=== PATIENT | male | born 1975 | race American Indian/Alaskan Native ===

== ENCOUNTER 2018-10-08 16:53 | Emergency (ER) | payer OTHER ==
[2018-10-08 18:01] VITALS: BP 155/100
--- NOTE | 2018-10-08 18:01 | Emergency Department Report ---
Blank Doc - Documentation Documentation: This is a 43-year-old male that presents with a foreign body to left finger 4th digit. Stated has some glass. This initial assessment/diagnostic orders/clinical plan/treatment(s) is/are subject to change based on patient's health status, clinical progression and re-assessment by fellow clinical providers in the ED. Further treatment and workup at subsequent clinical providers discretion. Patient/guardians urged not to elope from the ED as their condition may be serious if not clinically assessed and managed. Initial orders include: 1- Patient sent to [facility] for further evaluation and treatment 2- xray
--- NOTE | 2018-10-08 20:15 | XRay Report ---
PROCEDURE: XR FINGER(S) 2+V LT TECHNIQUE: Frontal view left hand and oblique and lateral views left fourth finger HISTORY: hand patient picked up a napkin with glass. COMPARISONS: None FINDINGS: There is no evidence of fracture or subluxation. The joint spaces are maintained. The soft tissues are notable for the appearance of a tiny, approximately 1.7 mm focus of linear incre ased density projected in the region of the radial aspect tuft of the fourth finger. This may represe nt a tiny piece of glass. IMPRESSION: 1. Tiny focus of linear increased density radial aspect tuft of the fourth finger which may represent a tiny piece of glass. This document is electronically signed by Jessica Adan MD., October 08 2018 08:13:09 PM ET
--- NOTE | 2018-10-08 23:09 | Emergency Department Report ---
- General Chief complaint: Skin/Abscess/Foreign Body Stated complaint: FB IN FINGER/BS CHECK/MED REFILL Time Seen by Provider: 10/08/18 18:00 Source: patient Mode of arrival: Ambulatory Limitations: No Limitations - History of Present Illness Initial comments: Pt is a 43 yo male who presents to the ED with c/o a foreign body in the left 4th digit that occurred 10 days ago. 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 The patient denies any drainage, edema to the digit, fever, numbness, weakness, or any other sx. The patient states his last tetanus was 1 year ago. The patient states he has HTN and has not taken his medication in a couple of months secondary to lack of insurance. Pt also has not seen a PCP. - Related Data Previous Rx's Medication Instructions Recorded Last Taken Type amLODIPine [Norvasc] 5 mg PO DAILY 30 Days #30 tab 10/08/18 Unknown Rx hydroCHLOROthiazide [HCTZ] 25 mg PO QDAY 30 Days #30 tablet 10/08/18 Unknown Rx Allergies Allergy/AdvReac Type Severity Reaction Status Date / Time No Known Allergies Allergy Verified 05/27/18 12:13 Abscess Boil HPI - HPI Chief Complaint: Skin/Abscess/Foreign Body Stated Complaint: FB IN FINGER/BS CHECK/MED REFILL Time Seen by Provider: 10/08/18 18:00 Home Medications: Previous Rx's Medication Instructions Recorded Last Taken Type amLODIPine [Norvasc] 5 mg PO DAILY 30 Days #30 tab 10/08/18 Unknown Rx hydroCHLOROthiazide [HCTZ] 25 mg PO QDAY 30 Days #30 tablet 10/08/18 Unknown Rx Allergies/Adverse Reactions: Allergies Allergy/AdvReac Type Severity Reaction Status Date / Time No Known Allergies Allergy Verified 05/27/18 12:13 ED Review of Systems ROS: Stated complaint: FB IN FINGER/BS CHECK/MED REFILL Other details as noted in HPI Comment: All other systems reviewed and negative ED Past Medical Hx - Past Medical History Hx Hypertension: Yes - Surgical History Past Surgical History?: No - Social History Smoking Status: Current Every Day Smoker Substance Use Type: Marijuana - Medications Home Medications: Home Medications Medication Instructions Recorded Confirmed Last Taken Type amLODIPine [Norvasc] 5 mg PO DAILY 30 Days #30 tab 10/08/18 Unknown Rx hydroCHLOROthiazide [HCTZ] 25 mg PO QDAY 30 Days #30 tablet 10/08/18 Unknown Rx ED Physical Exam - General Limitations: No Limitations General appearance: alert, in no apparent distress - Head Head exam: Present: atraumatic, normocephalic - Eye Eye exam: Present: normal appearance - ENT ENT exam: Present: mucous membranes moist - Respiratory Respiratory exam: Absent: respiratory distress - Cardiovascular Cardiovascular Exam: Present: regular rate - Extremities Exam Extremities exam: Present: full ROM, normal capillary refill. Absent: tenderness, pedal edema, joint swelling, calf tenderness - Neurological Exam Neurological exam: Present: alert, oriented X3 - Psychiatric Psychiatric exam: Present: normal affect, normal mood - Skin Skin exam: Present: warm, dry, other (.5 cm area of callus to the volar aspect of the right ring finger, no signs of infection, no drainage, no induration, no fluctuance, no surrounding cellulitis) ED Course Vital Signs 10/08/18 10/08/18 17:57 23:34 Temperature 98.7 F Pulse Rate 91 H 80 Respiratory 16 17 Rate Blood Pressure 155/100 O2 Sat by Pulse 100 99 Oximetry ED Medical Decision Making - Radiology Data Radiology results: report reviewed cc: SUDHIR JOAQUIN NP Fluoro Time In Minutes: PROCEDURE: XR FINGER(S) 2+V LT TECHNIQUE: Frontal view left hand and oblique and lateral views left fourth finger HISTORY: hand patient picked up a napkin with glass. COMPARISONS: None FINDINGS: There is no evidence of fracture or subluxation. The joint spaces are maintained. The soft tissues are notable for the appearance of a tiny, approximately 1.7 mm focus of linear increased density projected in the region of the radial aspect tuft of the fourth finger. This may represent a tiny piece of glass. IMPRESSION: 1. Tiny focus of linear increased density radial aspect tuft of the fourth finger which may represent a tiny piece of glass. This document is electronically signed by Jessica Adan MD., October 08 2018 08:13:09 PM ET - Medical Decision Making Pt is a 43 yo male who presents to the ED with c/o a foreign body in the left 4th digit that occurred 10 days ago. 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 The patient denies any drainage, edema to the digit, fever, numbness, weakness, or any other sx. The patient states his last tetanus was 1 year ago. The patient states he has HTN and has not taken his medication in a couple of months secondary to lack of insurance. Pt also has not seen a PCP. XR of the hand shows Tiny focus of linear increased density radial aspect tuft of the fourth finger which may represent a tiny piece of glass. appears to be very distally and will most likely self resolve, no signs of infection or cellulitis. Will refill a 30 day supply of patients HTN medication but gave patient a list of resources in the community and advised that he would need to have future refills through a primary care doctor and not through the emergency department. Pt is asymptomatic. WIll have pt see a PCP in the next 2-3 days. Return to the emergency room for any new or worsening symptoms. Discussed case with Dr. Ma who agrees with treatment and plan. Critical care attestation.: If time is entered above; I have spent that time in minutes in the direct care of this critically ill patient, excluding procedure time. ED Disposition Clinical Impression: Foreign body finger HTN (hypertension) Qualifiers: Hypertension type: essential hypertension Qualified Code(s): I10 - Essential (primary) hypertension Disposition: DC-01 TO HOME OR SELFCARE Is pt being admited?: No Does the pt Need Aspirin: No Condition: Stable Instructions: Soft Tissue Foreign Body (ED), Hypertension (ED) Additional Instructions: Small foreign body is very small and very superficial will self resolve. Will refill a 30 day supply of your HTN medication but I gave you a list of resources in the community and you will need to have future refills through a primary care doctor and not through the emergency department. Please follow up with a primary care doctor in the next 2-3 days. Return to the emergency room for any new or worsening symptoms. Prescriptions: hydroCHLOROthiazide [HCTZ] 25 mg PO QDAY 30 Days #30 tablet amLODIPine [Norvasc] 5 mg PO DAILY 30 Days #30 tab Referrals: YULI SANDERS MD [Primary Care Provider] - 2-3 Days Time of Disposition: 23:22 Print Language: VENEZUELAN
== END 2018-10-08 23:30 | disposition home or self-care (01) ==
LOC: ED 16:53
DX: S60.451A Superficial foreign body of left index finger, initial encounter (principal); I10 Essential (primary) hypertension; F17.200 Nicotine dependence, unspecified, uncomplicated; F12.10 Cannabis abuse, uncomplicated; X58.XXXA Exposure to other specified factors, initial encounter; Y93.89 Activity, other specified; Y92.89 Other specified places as the place of occurrence of the external cause; Y99.8 Other external cause status
CPT/HCPCS: 82962

== ENCOUNTER 2019-09-25 19:25 | Emergency (ER) | payer SELFPAY ==
[2019-09-25 19:33] VITALS: BP 151/100
--- NOTE | 2019-09-25 19:56 | Emergency Department Report ---
Blank Doc - Documentation Documentation: 44-year-old male that presents with upper and lower extermitites weakness and aching pain with fever and chills. This initial assessment/diagnostic orders/clinical plan/treatment(s) is/are subject to change based on patient's health status, clinical progression and re-assessment by fellow clinical providers in the ED. Further treatment and workup at subsequent clinical providers discretion. Patient/guardians urged not to elope from the ED as their condition may be serious if not clinically assessed and managed. Initial orders include: 1- Patient sent to [facility] for further evaluation and treatment 2- labs 3- rap flu
[2019-09-25 20:31] LABS: Basophils % (Auto) 0.3 % (0.0-1.8); Eosinophils # (Auto) 0.3 K/mm3 (0.0-0.4); Eosinophils % (Auto) 3.6 % (0.0-4.3); Hematocrit 43.8 % (35.5-45.6); Hemoglobin 14.4 gm/dl (11.8-15.2); Lymphocytes # (Auto) 3.1 K/mm3 (1.2-5.4); Lymphocytes % (Auto) 41.8 % (13.4-35.0); Mean Corpuscular HGB Conc 33 % (32-34); Mean Corpuscular Volume 86 fl (84-94); Monocytes # (Auto) 0.5 K/mm3 (0.0-0.8); Monocytes % (Auto) 6.6 % (0.0-7.3); Platelet Count 291 K/mm3 (140-440); Red Blood Count 5.12 M/mm3 (3.65-5.03); Red Cell Distribution Width 14.5 % (13.2-15.2)
[2019-09-25 20:40] LABS: BUN/Creatinine Ratio 18; Blood Urea Nitrogen 16 mg/dL (9-20); Calcium 9.6 mg/dL (8.4-10.2); Hemolysis Index 17
[2019-09-25 22:55] LABS: Bilirubin,Urine NEG (Negative); Blood,Urine NEG (Negative); Color,Urine Yellow (Yellow); Mucus,Urine 1+ /HPF; Urobilinogen,Urine < 2.0 mg/dL (<2.0)
[2019-09-25] MEDS ORDERED: predniSONE 20 MG TAB PO ONE (23:52)
[2019-09-25] MEDS ORDERED: ACETAMINOPHEN 325 MG TAB PO ONE (23:52)
[2019-09-25] MEDS ORDERED: MAGIC MOUTHWASH 30ML PO ONE (23:52)
--- NOTE | 2019-09-26 00:33 | Emergency Department Report ---
ED ENT HPI - General Chief complaint: Extremity Problem,Nontraumatic Stated complaint: LEG,ARM,THROAT PAIN Time Seen by Provider: 09/25/19 19:56 Source: patient Mode of arrival: Ambulatory Limitations: No Limitations - History of Present Illness Initial comments: Patient is a 44-year-old male who presents to ED with his mother complaining of throat pain 4 days. Patient describes pain as throbbing in nature, 8 out of 10 intensity, nonradiating, localized to his throat. Admits pain with swallowing and eating. Patient admits no appetite due to throat pain. Patient states that for the past 3 days now he is muscle pain in bilateral arms and legs. Patient also states that pain is generalized muscle aches. Patient also states that pain is throbbing in nature. Patient denies working out extremely or denies any heavy lifting recently. Patient states he is done for prolonged time at his job otherwise no physical activities Patient denies nausea/chills/fever vomiting/abdominal pain/shortness of breath/chest pain/headache. MD complaint: sore throat - Related Data Previous Rx's Medication Instructions Recorded Last Taken Type amLODIPine 5 mg PO DAILY 30 Days #30 tab 10/08/18 Unknown Rx hydroCHLOROthiazide [HCTZ] 25 mg PO QDAY 30 Days #30 tablet 10/08/18 Unknown Rx Amoxicillin [Trimox CAP] 500 mg PO Q8H #21 capsule 09/26/19 Unknown Rx Ibuprofen [Motrin 800 MG tab] 800 mg PO Q8HR PRN #30 tablet 09/26/19 Unknown Rx Nystas/Diphen/Xyl Visc/Mylanta 15 ml MM Q6H PRN #120 ml 09/26/19 Unknown Rx [Magic Mouthwash] Allergies Allergy/AdvReac Type Severity Reaction Status Date / Time No Known Allergies Allergy Verified 05/27/18 12:13 ED Dental HPI - General Chief complaint: Extremity Problem,Nontraumatic Stated complaint: LEG,ARM,THROAT PAIN Time Seen by Provider: 09/25/19 19:56 Source: patient Mode of arrival: Ambulatory Limitations: No Limitations - Related Data Previous Rx's Medication Instructions Recorded Last Taken Type amLODIPine 5 mg PO DAILY 30 Days #30 tab 10/08/18 Unknown Rx hydroCHLOROthiazide [HCTZ] 25 mg PO QDAY 30 Days #30 tablet 10/08/18 Unknown Rx Amoxicillin [Trimox CAP] 500 mg PO Q8H #21 capsule 09/26/19 Unknown Rx Ibuprofen [Motrin 800 MG tab] 800 mg PO Q8HR PRN #30 tablet 09/26/19 Unknown Rx Nystas/Diphen/Xyl Visc/Mylanta 15 ml MM Q6H PRN #120 ml 09/26/19 Unknown Rx [Magic Mouthwash] Allergies Allergy/AdvReac Type Severity Reaction Status Date / Time No Known Allergies Allergy Verified 05/27/18 12:13 ED Review of Systems ROS: Stated complaint: LEG,ARM,THROAT PAIN Other details as noted in HPI Comment: All other systems reviewed and negative ED Past Medical Hx - Past Medical History Previous Medical History?: Yes Hx Hypertension: Yes - Surgical History Past Surgical History?: No - Social History Smoking Status: Never Smoker - Medications Home Medications: Home Medications Medication Instructions Recorded Confirmed Last Taken Type amLODIPine 5 mg PO DAILY 30 Days #30 tab 10/08/18 Unknown Rx hydroCHLOROthiazide [HCTZ] 25 mg PO QDAY 30 Days #30 tablet 10/08/18 Unknown Rx Amoxicillin [Trimox CAP] 500 mg PO Q8H #21 capsule 09/26/19 Unknown Rx Ibuprofen [Motrin 800 MG tab] 800 mg PO Q8HR PRN #30 tablet 09/26/19 Unknown Rx Nystas/Diphen/Xyl Visc/Mylanta 15 ml MM Q6H PRN #120 ml 09/26/19 Unknown Rx [Magic Mouthwash] ED Physical Exam - General Limitations: No Limitations General appearance: alert, in no apparent distress - Head Head exam: Present: atraumatic, normocephalic - Eye Eye exam: Present: normal appearance - ENT ENT exam: Present: mucous membranes moist - Neck Neck exam: Present: normal inspection - Respiratory Respiratory exam: Present: normal lung sounds bilaterally. Absent: respiratory distress - Cardiovascular Cardiovascular Exam: Present: regular rate, normal rhythm. Absent: systolic murmur, diastolic murmur, rubs, gallop - GI/Abdominal GI/Abdominal exam: Present: soft, normal bowel sounds - Rectal Rectal exam: Present: deferred - Extremities Exam Extremities exam: Present: normal inspection - Back Exam Back exam: Present: normal inspection - Neurological Exam Neurological exam: Present: alert, oriented X3 - Psychiatric Psychiatric exam: Present: normal affect, normal mood - Skin Skin exam: Present: warm, dry, intact, normal color. Absent: rash ED Course Vital Signs 09/25/19 09/25/19 19:30 20:07 Temperature 98.2 F 98.2 F Pulse Rate 91 H 95 H Respiratory 20 20 Rate Blood Pressure 151/100 151/100 O2 Sat by Pulse 97 97 Oximetry ED Medical Decision Making - Lab Data Result diagrams: 09/25/19 20:05 09/25/19 20:05 Laboratory Last Values WBC 7.3 K/mm3 (4.5-11.0) 09/25/19 20:05 RBC 5.12 M/mm3 (3.65-5.03) H 09/25/19 20:05 Hgb 14.4 gm/dl (11.8-15.2) 09/25/19 20:05 Hct 43.8 % (35.5-45.6) 09/25/19 20:05 MCV 86 fl (84-94) 09/25/19 20:05 MCH 28 pg (28-32) 09/25/19 20:05 MCHC 33 % (32-34) 09/25/19 20:05 RDW 14.5 % (13.2-15.2) 09/25/19 20:05 Plt Count 291 K/mm3 (140-440) 09/25/19 20:05 Lymph % (Auto) 41.8 % (13.4-35.0) H 09/25/19 20:05 [place] % (Auto) 6.6 % (0.0-7.3) 09/25/19 20:05 Eos % (Auto) 3.6 % (0.0-4.3) 09/25/19 20:05 Baso % (Auto) 0.3 % (0.0-1.8) 09/25/19 20:05 Lymph # 3.1 K/mm3 (1.2-5.4) 09/25/19 20:05 [place] # 0.5 K/mm3 (0.0-0.8) 09/25/19 20:05 Eos # 0.3 K/mm3 (0.0-0.4) 09/25/19 20:05 Baso # 0.0 K/mm3 (0.0-0.1) 09/25/19 20:05 Seg Neutrophils % 47.7 % (40.0-70.0) 09/25/19 20:05 Seg Neutrophils # 3.5 K/mm3 (1.8-7.7) 09/25/19 20:05 Sodium 141 mmol/L (137-145) 09/25/19 20:05 Potassium 4.5 mmol/L (3.6-5.0) 09/25/19 20:05 Chloride 100.7 mmol/L (98-107) 09/25/19 20:05 Carbon Dioxide 25 mmol/L (22-30) 09/25/19 20:05 Anion Gap 20 mmol/L 09/25/19 20:05 BUN 16 mg/dL (9-20) 09/25/19 20:05 Creatinine 0.9 mg/dL (0.8-1.5) 09/25/19 20:05 Estimated GFR > 60 ml/min 09/25/19 20:05 BUN/Creatinine Ratio 18 % 09/25/19 20:05 Glucose 93 mg/dL (75-100) 09/25/19 20:05 Lactic Acid 1.00 mmol/L (0.7-2.0) 09/25/19 22:41 Calcium 9.6 mg/dL (8.4-10.2) 09/25/19 20:05 Total Creatine Kinase 468 units/L (55-170) H 09/25/19 20:05 Urine Color Yellow (Yellow) 09/25/19 22:17 Urine Turbidity Slightly-cloudy (Clear) 09/25/19 22:17 Urine pH 5.0 (5.0-7.0) 09/25/19 22:17 Ur Specific [place] 1.030 (1.003-1.030) 09/25/19 22:17 Urine Protein 30 mg/dl mg/dL (Negative) 09/25/19 22:17 Urine Glucose (UA) Neg mg/dL (Negative) 09/25/19 22:17 Urine Ketones Tr mg/dL (Negative) 09/25/19 22: Urine Blood Neg (Negative) 09/25/19: Urine Nitrite Neg (Negative) 09/25/19 22:17 Urine Bilirubin Neg (Negative) 09/25/19 22:17 Urine Urobilinogen < 2.0 mg/dL (<2.0) 09/25/19 22:17 Ur Leukocyte Esterase Neg (Negative) 09/25/19 22:17 Urine WBC (Auto) 6.0 /HPF (0.0-6.0) 09/25/19 22:17 Urine RBC (Auto) 1.0 /HPF (0.0-6.0) 09/25/19 22:17 Urine Mucus 1+ /HPF 09/25/19 22:17 - Medical Decision Making 44-year-old male presents with pharyngitis. ED course: All labs are within normal limits. Although patient's total creatinine was elevated patient is not in acute rhabdomyolysis. Urinalysis negative. Discussed all findings with the patient Discussed with patient to follow-up with primary care physician in 3 to 5 days. Patient received 1 dose of Tylenol, Magic mouthwash 60 mg of prednisone. There is no fever during ED stay Vital signs stable patient is in no acute or respiratory distress. Discussed findings with patient about the positive strep. Discussed treatment in ED with patient Discussed the patient that strep throat is contagious and to limit sharing spoons and such. Discussed with patient follow-up with primary care physician. Patient verbally states he understands and will comply to follow-up. Critical care attestation.: If time is entered above; I have spent that time in minutes in the direct care of this critically ill patient, excluding procedure time. ED Disposition Clinical Impression: Acute bacterial pharyngitis Disposition: - TO HOME OR SELFCARE Is pt being admited?: No Does the pt Need Aspirin: No Condition: Stable Instructions: Strep Throat (ED), Pharyngitis (ED) Additional Instructions: Make sure to follow up with the primary care physician as discussed. Take all your medications as you've been prescribed. If you have any worsening symptoms or develop new symptoms please return to ED immediately. Referrals: PRIMARY CARE, [Primary Care Provider] - 3-5 Days [facility] [Outside] - 3-5 Days [facility] [place] [Outside] - 3-5 Days Forms: Work/School Release Form(ED) Time of Disposition: 00:33
== END 2019-09-26 00:59 | disposition home or self-care (01) ==
LOC: ED 19:25
DX: J02.8 Acute pharyngitis due to other specified organisms (principal); B96.89 Other specified bacterial agents as the cause of diseases classified elsewhere; I10 Essential (primary) hypertension; Z79.899 Other long term (current) drug therapy
CPT/HCPCS: 36415; 80048; 81001; 82140; 82550; 85025; 99283; J7512